=== PATIENT | female | born 2000 | race Caucasian/White ===

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

== ENCOUNTER 2023-10-28 13:13 | Emergency (ER) | payer BC, SELFPAY ==
--- NOTE | ~2023-10-28 | XR_ITS ---
Portable chest x-ray Comparison: None Clinical History: Chest pain Findings: Lungs are clear, without focal consolidation or pleural effusion. Cardiomediastinal silho uette is unremarkable. Bones and soft tissues are unremarkable. Impression: Normal chest. Reviewed, dictated and finalized at location . ING PRESS OPERATOR Impression: Normal chest.
--- NOTE | ~2023-10-28 | CT_ITS ---
CT of the Abdomen and Pelvis: Indication: Abdominal pain Technique: 2.5 mm axial scans were obtained through the abdomen and pelvis following intravenous adm inistration of 100 cc of Omnipaque 350. Dose reduction technique was used on this scan by utilizing a utomated exposure control and iterative reconstruction technique. The dose-length product (DLP) was 5 49.95 mGy-cm. Findings: Scans through the lung bases are unremarkable. The liver, spleen, pancreas, gallbladder, adrenals and left kidney are within normal limits. There is duplication of the right renal collecting system. No evidence of aortic aneurysm. No lymphadenopath y. No bowel obstruction or bowel wall thickening. There is no evidence to suggest acute appendicitis. Images through the pelvis were performed. Urinary bladder unremarkable. No adnexal mass seen. No asci david. Impression: No acute abnormality. 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 Reviewed, dictated and finalized at [facility]. RIBUTOR SALES MANAGER Impression: No acute abnormality. 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
--- NOTE | 2023-10-28 13:14 | ECG_ITS ---
Measurements Intervals [place] Rate: 76 P: 20 AR: 158 QRS: 78 QRSD: 86 T: 42 QT: 348 QTc: 392 Interpretive Statements SINUS RHYTHM WITH SINUS ARRHYTHMIA NONSPECIFIC ST & T-WAVE ABNORMALITY ABNORMAL ECG NO PREVIOUS ECG AVAILABLE FOR COMPARISON Electronically Signed On 10-29-2023 8:35:50 RACE RELATIONS ADVISER by Job Kennedy M.D.
[2023-10-28 13:35] LABS: Basophils Percent Auto 0.5 % (0.2-1.2); Eosinophils Absolute Auto 0.2 K/mm3 (0-0.3); Hematocrit 36.8 % (37.0-47.0); Immature Granulocyte Absolute 0.03 K/mm3 (0.00-0.031); Immature Granulocyte Percent A 0.4 % (0-0.5); Lymphocytes Percent Auto 24.7 % (18.3-44.2); Mean Corpuscular HGB Conc 32.6 g/dl (32-36); Mean Corpuscular Hemoglobin 29.9 pg (26-34); Mean Corpuscular Volume 91.8 fl (80-100); Monocytes Absolute Auto 0.5 K/mm3 (0.1-0.6); Monocytes Percent Auto 6.1 % (2.6-8.5); Neutrophils Absolute Auto 5.6 K/mm3 (1.3-6.7); Neutrophils Percent Auto 66.3 % (45.5-73.1); Platelet Count Result 291 k/mm3 (150-375); Red Blood Count 4.01 M/mm3 (4.2-5.4); Red Cell Distribution Width 13.1 % (11.5-14.5); White Blood Count 8.5 K/mm3 (4.5-10.0)
[2023-10-28 13:47] LABS: Alanine Aminotransferase 14 U/L (6-35); Albumin Level 4.1 g/dL (3.5-5.1); Alkaline Phosphatase 95 U/L (38-126); Anion Gap 10 mmol/L (8-16); Aspartate Amino Transferase 21 U/L (14-36); Bilirubin,Total 0.5 mg/dL (0.2-1.3); Blood Urea Nitrogen 10 mg/dL (7-17); Calcium 9.2 mg/dL (8.4-10.2); Carbon Dioxide 16 mmol/L (22-30); Chloride 113 mmol/L (98-107); Estimated CRCL calculation 93 ml/min; Estimated Glomerular Filt Rate > 60; Glucose 90 mg/dL (65-110); Lipase 39 U/L (23-300); Potassium 3.3 mmol/L (3.4-5.0); Sodium 139 mmol/L (137-145)
[2023-10-28 14:40] VITALS: BP 115/69; PULSE 90; RESP 17; O2SAT 100
[2023-10-28 14:55] LABS: Amorphous Sediment Urine Present; Appearance Urine Turbid (Clear); Bacteria Urine 3+ /hpf; Bilirubin Urine Negative (Negative); Blood Urine Negative (Negative); Color Urine Yellow (Yellow); Glucose Urine UA Negative (Negative); Ketones Urine Negative (Negative); Leukocyte Esterase Ur 1+ LEU/UL (Negative); Need Manual Microscopic Reviewed; Nitrate Urine Negative (Negative); Non Pathogenic Casts 0-2; Protein Urine Trace mg/dL (Negative); RBC Urine 0-2 /hpf (0-2); Specific Grav Ur 1.025 (1.001-1.035); Squamous Epithelial Cell Urine Moderate /hpf (Few); Urobilinogen Urine 0.2 mg/dL (<2.0); WBC Urine 0-5 /hpf; pH Urine 7.5 (5.0-9.0)
[2023-10-28 14:57] LABS: Add Urine Microscopic? YES
--- NOTE | 2023-10-28 15:42 | ED.ABDPAIN ---
HPI - Abdominal Pain General Chief Complaint: Abdominal Pain Stated Complaint: chest/abd pain Time Seen by Provider: 10/28/23 14:21 History of Present Illness HPI narrative: Patient is a 22-year-old female presenting with abdominal pain. States that for the last week or so she has had upper abdominal pain that is worse with eating. States that she often has diarrhea shortly after eating as well. States that she is nauseated but has not vomited. The pain radiated into her chest today who she became concerned and came in for evaluation. No cough, fevers, shortness of breath. No dysuria or hematuria. No leg swelling. Related Data Home Medications Medication Instructions Recorded Confirmed norethindrone 1 mg-ethinyl 1 tablet PO DAILY 04/26/23 10/28/23 estradiol 10 mcg (24)-iron 10 mcg(2) tablet (Lo Loestrin Fe) Allergies Allergy/AdvReac Type Severity Reaction Status Date / Time Penicillins Allergy Mild Rash Verified 10/28/23 14:41 rimegepant [From [facility] ODT] Allergy Rash Verified 10/28/23 14:41 Review of Systems Review of Systems: All systems reviewed & are unremarkable except as noted in HPI and below PMFSH Past Medical History Medical History ADHD (attention deficit hyperactivity disorder) Dependent personality disorder Depression with anxiety Insomnia Family History Family History Mother Hypertension Sibling Asthma Depression Grandparent Thyroid disorder Grandparent Lung cancer Social History Social History Smoking status: Never smoker Alcohol intake: never Substance use: never Exam Narrative: GENERAL: Well-appearing, well-nourished, and in no acute distress. HEAD: Normocephalic, atraumatic. EYES: PERRLA and EOMI. ENT: Mucous membranes moist. NECK: Supple. CHEST: Clear to auscultation. No respiratory distress. HEART: Regular rate and rhythm ABDOMEN: Soft, +LUQ/RUQ/epigastric tenderness EXTREMITIES: Normal range of motion. No edema. SKIN: Warm, dry, no rash. NEURO: No focal deficits. Alert and oriented x3. PSYCH: Normal mood and affect. Course Vital Signs Vital signs: Vital Signs Pulse Rate 90 10/28/23 14:40 Respiratory Rate 17 10/28/23 14:40 Blood Pressure 115/69 10/28/23 14:40 Pulse Oximetry 100 10/28/23 14:40 Pulse Rate 89 10/28/23 17:37 Respiratory Rate 16 10/28/23 17:37 Blood Pressure 114/76 10/28/23 17:37 Pulse Oximetry 100 10/28/23 17:37 MDM - Abdominal Pain MDM Narrative Medical decision making narrative: 22-year-old female presenting with abdominal pain. Vitals are stable. Exam remarkable for the above. EKG present in shows normal sinus rhythm, nonspecific ST-T changes, no acute ischemic changes. Chest x-ray without acute abnormalities. Blood work with mild hypokalemia. No leukocytosis. Lipase is normal. UA is noninfected. CT abdomen pelvis without acute abnormalities. Patient with improvement in her pain and nausea following Zofran, Pepcid, GI cocktail. Will send in for daily Pepcid as well as Bentyl p.r.n.. She has an appointment with her PCP tomorrow. Appropriate return precautions given. Discharged in stable condition. Differential Diagnosis Differential diagnosis: Likely abdominal pain, acute appendicitis, constipation, diverticulitis, pancreatitis and small bowel obstruction Medical Records Attestation: I reviewed the patient's medical records. Lab Data Attestation: I reviewed the patient's lab results. 10/28/23 13:26 10/28/23 13:26 Labs: Lab Results 10/28/23 10/28/23 10/28/23 Range/Units 13:26 14:38 16:05 WBC 8.5 (4.5-10.0) K/mm3 RBC 4.01 L (4.2-5.4) M/mm3 Hgb 12.0 (12.0-15.0) g/dL Hct 36.8 L (37.0-47.0) % MCV 91.8 (80-100) fl MCH 29.9 (26-34) pg MCHC 32.
[2023-10-28] MEDS: ONDANSETRON INJ 4 MG/2 ML VIAL IV PUSH (15:55)
[2023-10-28] MEDS: SODIUM CHLORIDE 0.9% IV 1,000 ML 999 ML IV CONT (15:55)
[2023-10-28] MEDS: FAMOTIDINE 20 MG/2 ML VIAL IV PUSH (15:55)
[2023-10-28 16:01] VITALS: BP 100/60; PULSE 75; RESP 18; O2SAT 100
[2023-10-28 16:45] LABS: Influenza A QL RT-PCR Negative (Negative); Influenza B QL RT-PCR Negative (Negative); RSV RNA, RT-PCR Negative (Negative); SARS-CoV-2 RNA PCR Negative (Negative)
[2023-10-28 17:37] VITALS: BP 114/76; PULSE 89; RESP 16; O2SAT 100
[2023-10-28] MEDS: BELLADONNA ALK/PHENOB ELIX 10 ML, MAG HYDROX/ALUMINUM HYD/SIMETH 30 ML, LIDOCAINE HCL 2... PO (17:39)
== END 2023-10-28 18:34 | disposition home or self-care (01) ==
PROVIDERS: Emergency Medicine; Emergency Provider Emergency Medicine; PCP Nurse Practitioner Family
DX: R10.10 Upper abdominal pain, unspecified (principal); E87.6 Hypokalemia; Z20.822 Contact with and (suspected) exposure to COVID-19; R94.31 Abnormal electrocardiogram [ECG] [EKG]
CPT/HCPCS: 36415; 71045; 74177; 80053; 81001; 81025; 83690; 85025; 87637; 93005; 96361; 96374; 96375; 99284; A9270; J2405; J7030; Q9967